=== PATIENT | male | born 1960 | race Caucasian/White ===

== ENCOUNTER 2023-12-28 06:15 | Day surgery (SDC) | payer BC, SELFPAY ==
--- NOTE | 2023-12-28 07:05 | HP.FOC2 ---
Focused History & Physical
Chief Complaint
HPI:
Chief Complaint: Posterior neck lipoma
HPI / Indication for Planned Procedure: Patient is a 63-year-old male with a longstanding history of a palpable swelling/protrusion on his posterior neck area. It has slowly increased in size over the years. Recent outpatient ultrasound imaging in
2021 was obtained to evaluate the area identifying a 3.6 cm soft tissue mass consistent with lipoma versus fibroma. Outpatient surgical evaluation confirm presence of a soft, mobile subcutaneous lipomatous like mass about 4 cm. He presents today
for scheduled operative excision.
Relevant Past Medical History: Other (Herniated lumbar disc, hiatal hernia, GERD, postconcussive syndrome, lumbar laminectomy, history of H. pylori)
Relevant Social History: Tobacco Use (Former smoker)
Relevant Family History: Negative
Relevant Past Surgical History: Positive for (Lumbar laminectomy, repair of left arm nerves, hemorrhoidectomy)
Review of Systems
Review of Pertinent Systems: All Systems Negative
Medication
See Medication form for detailed medications: Yes
Medication List (including Herbals & OTC):
ibuprofen 800 mg tablet (IBU) 800 mg PO PRN PRN pain 12/27/20
Medications Reviewed: Yes
Allergies and Reactions
Patient has Allergies: No
Noted Allergies and Reactions:
Allergy/AdvReac Type Severity Reaction Status Date / Time
No Known Allergies Allergy Unverified 12/21/23 09:56
Pertinent Physical Exam
All Other Systems: Negative
Head/Neck: Other (4 cm posterior neck lipomatous subcutaneous mass)
Lungs: Normal
Heart: Normal
Abdomen: Normal
Extremities: Normal
Neurological: Normal
Diagnosis / Assessment
63-year-old male presenting for scheduled excision of an enlarging subcutaneous mass in the posterior central neck region felt to most likely be lipoma versus fibroma, 4 cm
Plan / Procedure
Excision posterior neck lipoma
Anesthesia/Sedation to be done by Anesthesia Provider: Yes
[2023-12-28 07:38] VITALS: BP 118/84
[2023-12-28] MEDS: TYLENOL 1000 MG PO (07:53)
[2023-12-28] MEDS: NORMOSOL-R 1000 IV (07:53)
[2023-12-28 08:05] VITALS: BMI 32.0
[2023-12-28 08:06] VITALS: BMI 32.0
--- NOTE | 2023-12-28 13:12 | W.SUR.PREOP ---
Pre-Operative Surgical Note
-
I have examined this patient prior to the performance of the scheduled procedure.
The patient's condition is unchanged from the time of the current History and
Physical and the patient is able to undergo the scheduled procedure.
--- NOTE | 2023-12-28 13:12 | W.IMMPOSTOP ---
Addendum entered and electronically signed by Jayjay Monroe MD 01/01/24 15:45:
#[id number]
Original Note:
Surgical Immed Post Op Note
-
Primary Surgeon: Fer
Assisting Surgeon: Ricky CHRISTIANSEN
Pre-op Diagnosis: Posterior neck subcutaneous lipoma
Post-op Diagnosis: Posterior neck subcutaneous lipoma
Procedure Performed: Excision posterior neck subcutaneous lipoma, 3 cm diameter
Anesthesia Type: Monitored sedation with incisional field block utilizing 1% lidocaine mixed with quarter percent Marcaine
Specimen / Cultures: Lipomatous tissue
Estimated Blood Loss: 6 mL
Complications: None immediate
Operative Findings: Lipomatous tissue underlying subcutaneous fascial layer over top of muscular fascia in the posterior neck. Not well encapsulated. 3 cm diameter tissue removed in piecemeal. Closure of deep subcutaneous fascia 3-0 Vicryl, deep
dermis 3-0 Vicryl, skin closure with 4-0 Monocryl subcuticular. Steri-Strips.
[2023-12-28 13:13] VITALS: BP 125/83
[2023-12-28 13:15] VITALS: BP 113/89
[2023-12-28 13:30] VITALS: BP 138/82
[2023-12-28 13:45] VITALS: BP 143/79
== END 2023-12-28 13:57 | disposition home or self-care (01) ==
LOC: SDS 06:15
PROVIDERS: ATTENDING PHYSICIAN Surgery
DX: D17.0 Benign lipomatous neoplasm of skin and subcutaneous tissue of head, face and neck (principal)
CPT/HCPCS: 11424; 12042; 88304

== ENCOUNTER → 2024-03-12 12:29 | Outpatient (REF) | payer BC, SELFPAY ==
[2024-03-12 15:39] LABS: Body Fluid Mononuclear 43.1 %; Body Fluid Polymorphonuclear 56.9 %; Body Fluid WBC 580 /CUMM
[2024-03-12 15:42] LABS: Body Fluid Second Tech LD
== END ==
LOC: REG 12:29
PROVIDERS: ATTENDING PHYSICIAN Specialist; FAMILY PHYSICIAN Pediatrics Pediatric Nephrology
DX: M25.461 Effusion, right knee (principal)
CPT/HCPCS: 87015; 87070; 87205; 89051

== ENCOUNTER → 2024-09-19 10:01 | Outpatient (REF) | payer BC, SELFPAY ==
[2024-09-19 12:26] LABS: % Basophils 0.8 % (0-2); % Eosinophils 3.6 % (0-6); % Immature Granulocytes 1.2 % (0-0.5); % Lymphocytes 36.4 % (20.5-51.1); % Monocytes 7.9 % (1.7-9.3); % Neutrophils 50.1 % (42.2-75.2); Absolute Basophils 0.1 10^3/uL (0-0.2); Absolute Eosinophils 0.3 10^3/uL (0-0.7); Absolute Immature Granulocytes 0.1 10^3/uL (0-0.05); Absolute Lymphocytes 2.8 10^3/uL (1.2-3.4); Absolute Monocytes 0.6 10^3/uL (0.1-0.6); Absolute Neutrophils 3.9 10^3/uL (1.4-6.5); Hematocrit 44.8 % (39.0-52.0); Hemoglobin 14.9 g/dL (13.0-18.0); Mean Corp Hgb Conc. 33.3 g/dL (33.0-37.0); Mean Corpuscular Hgb 28.3 pg (27.0-31.0); Mean Corpuscular Volume 85.2 fL (80.0-94.0); Mean Platelet Volume 11.5 fL (7.4-10.4); Nucleated Red Blood Cells % 0 % (-); Platelet Count 212 10^3/uL (130-400); Red Blood Cell Count 5.26 10^6/uL (4.70-6.10); Red Cell Dist. Width 12.4 % (11.5-14.5); White Blood Cell Count 7.7 10^3/uL (4.8-10.8)
[2024-09-19 12:43] LABS: ALT (SGPT) 41 U/L (0-50); AST (SGOT) 34 U/L (17-59); Albumin 4.6 g/dl (3.5-5.0); Alkaline Phosphatase 73 U/L (38-126); Blood Urea Nitrogen 17 mg/dl (9-20); Calcium 9.7 mg/dl (8.4-10.2); Carbon Dioxide 27 mmol/L (22-30); Chloride 101 mmol/L (98-107); Glucose 99 mg/dl (70-99); HDL Cholesterol 54 mg/dl; LDL Cholesterol, Calculated 161 mg/dl; Potassium 4.6 mmol/L (3.5-5.1); Sodium 138 mmol/L (135-145); Total Bilirubin 0.6 mg/dl (0.2-1.3); Total Cholesterol 230 mg/dl (50-199); Total Protein 7.6 g/dl (6.3-8.2); Triglyceride 76 mg/dl (10-149); Very Low Density Lipoprotein 15 mg/dl (0-30); eGFR > 60.00
[2024-09-19 12:59] LABS: Glycohemoglobin (HgbA1c) 5.6 % (4.0-5.6)
[2024-09-19 13:04] LABS: PSA, Total - Screen 0.69 ng/ml (0.0-4.0)
[2024-09-19 14:33] LABS: Urine Albumin Negative (Neg - Trace); Urine Bilirubin Negative (Negative); Urine Character Clear (Clear); Urine Color Yellow; Urine Glucose Negative (Negative); Urine Ketone Negative (Negative); Urine Leukocyte Trace (Negative); Urine Nitrite Negative (Negative); Urine Occult Blood Negative (Negative); Urine Urobilinogen Negative (Neg - 1+)
[2024-09-19 15:16] LABS: Urine Bacteria Few (Negative); Urine Red Blood Cell 0-2 /HPF (0-2); Urine Squamous Cell 0-2 /LPF (Few); Urine White Cell 0-2 /HPF (0-5)
== END ==
LOC: HWLAB 10:01
PROVIDERS: ATTENDING PHYSICIAN Nurse Practitioner Family
DX: Z00.00 Encounter for general adult medical examination without abnormal findings (principal); Z12.5 Encounter for screening for malignant neoplasm of prostate; K21.9 Gastro-esophageal reflux disease without esophagitis; E66.9 Obesity, unspecified; Z23 Encounter for immunization; D17.9 Benign lipomatous neoplasm, unspecified; R73.01 Impaired fasting glucose; R31.9 Hematuria, unspecified; R33.9 Retention of urine, unspecified
CPT/HCPCS: 36415; 80053; 80061; 81003; 81015; 83036; 85025; G0103

== ENCOUNTER 2025-01-16 06:18 | Day surgery (SDC) | payer BC, SELFPAY | END 2025-01-16 12:15 | disposition home or self-care (01) | LOC: GI 06:18 | PROVIDERS: ATTENDING PHYSICIAN Specialist | DX: Z12.11 Encounter for screening for malignant neoplasm of colon (principal); D12.2 Benign neoplasm of ascending colon; K63.5 Polyp of colon; K56.2 Volvulus; K64.8 Other hemorrhoids; Z86.0101 Personal history of adenomatous and serrated colon polyps | CPT/HCPCS: 45380; 88305 ==